=== PATIENT | female | born 2000 | race Caucasian/White ===

== ENCOUNTER 2024-07-20 09:55 | Outpatient (AMB) | payer OTHER, SELFPAY ==
[2024-07-20 10:01] VITALS: BP 106/70; PULSE 96; BMI 30.5
--- NOTE | 2024-07-20 10:01 | A.OFFVIS_ITS ---
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 Particularly noting it after she was diagnosed with COVID in 2021. She describes the fatigue as overwhelming and preventing her from doing her activities of daily living and from working. She does note that she ?ran herself into the ground? during college with her course load and then after college she worked 2-3 jobs. However even now when she has scaled back she continues to experience fatigue. Sometimes during the day she we will get an overwhelming feeling of needing to lay down because she is feeling so tired. Denies rashes, photosensitivity, alopecia, oral/nasal ulcers, sicca symptoms, lymphadenopathy, chest pain/shortness of breath, inflammatory type joint pain, foamy urine, lower extremity edema, muscle weakness, Raynaud's Also denies history of seizure, CVA, psychosis, history of kidney problems, history of cytopenias, history of VTE including PE or DVTs OB History: Never been [facility] Medical History (Updated 07/20/24 @ 12:00 by Casandra Escoto MD) Fatigue Positive RAMA (antinuclear antibody) Surgical History (Updated 07/20/24 @ 10:03 by KEVIN Kidd) Hx of wisdom tooth extraction Hx of bilateral breast reduction surgery Family History (Updated 07/20/24 @ 10:04 by KEVIN Kidd) Father No problems noted. Mother Brain tumor Social History (Updated 07/20/24 @ 10:03 by KEVIN Kidd) Alcohol intake: current Alcohol intake frequency: does not drink Patient Tobacco Use Status: Never used Tobacco Review of Systems Const Details: Review of Systems Constitutional: Denies fever, chills, weight loss ENT: Denies vision changes, eye pain or eye redness, dental caries, dry mouth GI: Denies nausea, vomiting, diarrhea, abdominal pain, change in BM Pulm: Denies SOB, CONTRERAS, hemoptysis, wheezing Cards: Denies chest pain, palpitations Skin: Denies Raynaud's, rash, nail changes, photosensitivity, A AND P MECHANIC: Denies headaches, weakness, paresthesias, recurrent falls MSK: as per HPI All other systems reviewed and are unremarkable except noted above Physical Exam Vital Signs: Last Vital Signs Pulse 96 07/20/24 10:01 BP 106/70 07/20/24 10:01 BMI result Body Mass Index 30.5 Physical Examination CONSTITUITIONAL Patient alert and cooperative. Well appearing and in no apparent painful distress HEENT Conjunctiva and sclera clear. ?Pupils equal round and reactive to light. ?No lymphadenopathy. ? CHEST/RESPIRATORY SYSTEM Normal respiratory effort and able to speak in complete sentences. ?Clear to auscultation bilaterally. ?No crackles, rales, rhonchi, wheezes heard. CARDIAC SYSTEM Regular rate and rhythm. ?S1 and S2 heard no murmurs. 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 No deformities noted. ?No synovitis noted to the MCPs, PIPs or DIPs. ?No tenderness to palpation of these joints. Wrists: ?Full range of motion at the wrists without pain. ?No tenderness to palpation or synovitis noted to the wrists. Elbows: Full range of motion without pain. No tenderness, weakness, swelling, increased warmth or erythema. Shoulders: Full range of motion without pain. No tenderness, weakness, swelling, increased warmth or erythema. Hips: Full range of motion without pain. Hip bursa: No tenderness to palpation Knees: ?Full range of motion. ?No tenderness, swelling, increased warmth or erythema.?No effusion or crepitations Ankles: Full range of motion. ?No tenderness, swelling, increased warmth or erythema.? Feet: ?Negative squeeze test. ?No tenderness to palpation or swelling of the MTPs. Tender points:??No tenderness to palpation of the neck, shoulders, chest, elbows, hips, buttocks or knees. SKIN Skin intact without rashes. Results Reviewed Results Reviewed: RAMA 1:320 Assessment & Plan Assessment & Plan (1) Positive RAMA (antinuclear antibody): Code(s): R76.8 - Other specified abnormal immunological findings in serum Category: Medical Plan: #Positive RAMA The presence of antinuclear antibodies (RAMA) is mainly associated with connective tissue diseases (CTD). ?However, their presence is found in healthy people especially in women and patients >65. ?In healthy individuals, the frequency of RAMA has been shown to be 31.7% of individuals at 1:40 serum dilution, 13.3% at 1:80, 5.0% at 1:160, and 3.3% at 1:320 (2). Some drugs and xenobiotics are also important for the development of RAMA (hydralazine, hydrochlorothiazide, minocycline, terbinafine, ciprofloxacin, furosemide, omeprazole). Moreover, the deficiency of vitamin D in the body of patients correlates with occurrence of these antibodies (1). At this time there is low suspicion for a connective tissue disease. But given the age of the patient we will evaluate for autoimmune disease serologies Plan - Send CBC, CMP, ESR, CRP, C3, C4, APS labs, UA, UPC - RTC September 2024 1. Bart?maci Salas, Narciso Romero, Jose David Ernandez. Antinuclear antibodies in healthy people and non-rheumatic diseases - diagnostic and clinical implications. Reumatologia. 2018;56(4):243-248. doi: 10.5114/reum.[email or web address]. Epub 2017Apr 10. PMID: [id number]; PMCID: [id number]. 2. Hesham EM, Jose Antonio TE, Palomo JS, Sanjana B, Scott R, Bernard MJ, Taras T, Gina JA, Bhavesh RUFFIN, Edinson RG, Gaby RN, Devonte JS, Bar NF, Vaishnavi RJ, Takkvng Y, Kari A, Phu MR, Osei AGUILAR. Range of antinuclear antibodies in healthy individuals. Arthritis Rheum. 1997 Sep;40(9):1601-11. doi: 10.1002/art.[id number]. PMID: 2134492. (2) Fatigue: Code(s): R53.83 - Other fatigue Category: Medical Qualifiers: Fatigue type: chronic, unspecified Qualified Code(s): R53.82 - Chronic fatigue, unspecified Plan: #Fatigue Patient with chronic fatigue. Unsure of the underlying etiology Will check for usual causes Low suspicion that this is related to an autoimmune disorder at this time Plan I spent 45 minutes reviewing the record and labs, seeing the patient, discussing the treatment plan and documenting in the medical record ? Orders: Orders Complement C3 Today R76.8 - Other specified abnormal immunological findings in serum C Reactive Protein Today R76.8 - Other specified abnormal immunological findings in serum Erythrocyte Sedimentation Rate Today R76.8 - Other specified abnormal immunological findings in serum RAMA Reflex Titer and Pattern Today R76.8 - Other specified abnormal immunological findings in serum DNA Double Stranded-Crithidia Today R76.8 - Other specified abnormal immunological findings in serum Beta-2 Glycoprotein Antibody Today R76.8 - Other specified abnormal immunological findings in serum Cardiolipin Antibodies Today R76.8 - Other specified abnormal immunological findings in serum Lyme IgG/IgM w/reflex to WB Today R53.83 - Other fatigue, R76.8 - Other specified abnormal immunological findings in serum Aldost/Renin Today R53.83 - Other fatigue, R76.8 - Other specified abnormal immunological findings in serum Renin Today R53.83 - Other fatigue, R76.8 - Other specified abnormal immunological findings in serum Aldosterone Today R53.83 - Other fatigue, R76.8 - Other specified abnormal immunological findings in serum Vitamin D 25-OH (D2 and D3) Today R53.83 - Other fatigue, R76.8 - Other specified abnormal immunological findings in serum Complement C4 Today R76.8 - Other specified abnormal immunological findings in serum Complete Blood Count Auto Diff Today R76.8 - Other specified abnormal immunological findings in serum Comprehensive Met. Panel Today R76.8 - Other specified abnormal immunological findings in serum Anti Extractable Nuclear Ag Today R76.8 - Other specified abnormal immunological findings in serum Anti DNA DS Antibody Today R76.8 - Other specified abnormal immunological findings in serum Sjogren's Antibodies Today R76.8 - Other specified abnormal immunological findings in serum Protein Creatinine Ratio, Ur Today R76.8 - Other specified abnormal immunological findings in serum Lupus Anticoagulant Panel Today R76.8 - Other specified abnormal immunological findings in serum UA w Microscopic Today R76.8 - Other specified abnormal immunological findings in serum RT sleep testing - MSLT Today R76.8 - Other specified abnormal immunological findings in serum RT PSG in-lab sleep study Today R76.8 - Other specified abnormal immunological findings in serum Cortisol Random Today R53.83 - Other fatigue, R76.8 - Other specified abnormal immunological findings in serum Vitamin B12 and Folate Today R53.83 - Other fatigue, R76.8 - Other specified abnormal immunological findings in serum Ferritin Today R53.83 - Other fatigue, R76.8 - Other specified abnormal immunological findings in serum IRON PROFILE Today R53.83 - Other fatigue, R76.8 - Other specified abnormal immunological findings in serum TSH reflex Free T4 Today R53.83 - Other fatigue, R76.8 - Other specified abnormal immunological findings in serum Coding Level of Care Code New Pt Level 4 (33958) Complex EM visit Add On G2211 Diagnoses Positive RAMA (antinuclear antibody) R76.8 Chronic fatigue R53.82 Fatigue type: chronic, unspecified
== END 2024-07-20 10:53 | disposition home or self-care (01) ==
PROVIDERS: Visit Provider Student in an Organized Health Care Education/Training Program
DX: R76.8 Other specified abnormal immunological findings in serum (principal); R53.82 Chronic fatigue, unspecified
CPT/HCPCS: 99204; G2211

== ENCOUNTER → 2024-07-20 09:55 | Outpatient (BNVA) | payer OTHER, SELFPAY | PROVIDERS: Visit Provider Student in an Organized Health Care Education/Training Program ==